=== PATIENT | female | born 2000 | race Caucasian/White ===

== ENCOUNTER 2023-07-24 08:36 | Emergency (ER) | payer OTHER, SELFPAY ==
[2023-07-24 09:11] VITALS: BP 136/87; PULSE 115; RESP 16; TEMP 36.8; O2SAT 100
[2023-07-24 09:38] LABS: Appearance Urine Cloudy (Clear); Bacteria Urine 1+ /hpf; Bilirubin Urine Negative (Negative); Blood Urine 1+ (Negative); Color Urine Yellow (Yellow); Glucose Urine UA Negative (Negative); Ketones Urine 1+ mg/dL (Negative); Leukocyte Esterase Ur 3+ LEU/UL (Negative); Nitrate Urine Negative (Negative); Non Pathogenic Casts 0-2; Protein Urine Trace mg/dL (Negative); Specific Grav Ur 1.024 (1.001-1.035); Squamous Epithelial Cell Urine Few /hpf (Few); Urobilinogen Urine 0.2 mg/dL (<2.0); WBC Urine >100 /hpf (0-3)
--- NOTE | 2023-07-24 09:38 | ED.FEMALEGU ---
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 Reports she started to have some discomfort on Tuesday. This discomfort has worsened and the area is swollen, she is having abnormal drainage. She made appointment with her butt maker, but this is not till tomorrow. She did not think she could wait. Reports discomfort with urination. Would like to be tested for STDs. Denies fevers. Related Data Allergies Allergy/AdvReac Type Severity Reaction Status Date / Time No Known Allergies Allergy Verified 07/24/23 08:37 Review of Systems Review of Systems: CONSTITUTIONAL: Denies fever GENITOURINARY: Reports dysuria SKIN: Reports rash All systems reviewed & are unremarkable except as noted in HPI and below PMFSH Past Medical History Medical History (Updated 07/24/23 @ 12:19 by Gloria Alanis PA-C) No active medical problems Social History Social History (Updated 07/24/23 @ 09:46 by Gloria Alanis PA-C) Smoking status: Never smoker Exam Narrative: GENERAL: Well-appearing, well-nourished, and in no acute distress. HEAD: Normocephalic, atraumatic. EYES: EOMI. EXTREMITIES: Normal range of motion. No edema. SKIN: Warm, dry, no rash. NEURO: No focal deficits. Alert and oriented x3. PSYCH: Normal mood and affect PELVIC: Ulcerations on an erythematous base to the labia. Ulcerations on the cervix with yellow/green cervical discharge Course Course Emergency Course: patient updated on workup and agrees with plan of care Vital Signs Vital signs: Vital Signs Temperature 98.3 F 07/24/23 09:11 Pulse Rate 115 H 07/24/23 09:11 Respiratory Rate 16 07/24/23 09:11 Blood Pressure 136/87 07/24/23 09:11 Pulse Oximetry 100 07/24/23 09:11 Oxygen Delivery Room Air 07/24/23 09:11 Temperature 98.3 F 07/24/23 09:11 Pulse Rate 115 H 07/24/23 09:11 Respiratory Rate 16 07/24/23 09:11 Blood Pressure 136/87 07/24/23 09:11 Pulse Oximetry 100 07/24/23 09:11 Oxygen Delivery Room Air 07/24/23 09:11 MDM - Female Genitourinary MDM Narrative Medical decision making narrative: Patient presents to the ER for vulvovaginal irritation. Exam is consistent with likely herpes infection. Will be started on Valtrex. Urine does appear infected. Will be started on Macrobid as well. chlamydia, gonorrhea, and Trichomonas are negative. Genital culture and HSV cultures are pending. patient updated on workup and agrees with plan of care. She is to follow up with her butt maker. She was given warnings to return to the ER Differential Diagnosis Differential diagnosis: Likely urinary tract infection, bacterial vaginosis, trichomoniasis, cervicitis, vaginitis, cystitis and other (herpes) Lab Data Attestation: I reviewed the patient's lab results. Labs: Lab Results 07/24/23 07/24/23 07/24/23 Range/Units 09:20 10:11 10:12 Urine Color Yellow (Yellow) Urine Appearance Cloudy H (Clear) Urine pH 6.0 (5.0-9.0) Ur Specific [employer] 1.024 (1.001-1.035) Urine Protein Trace (Negative) mg/dL Urine Glucose (UA) Negative (Negative) mg/dL Urine Ketones 1+ H (Negative) mg/dL Ur Blood (Man) 1+ H (Negative) Urine Nitrate Negative (Negative) Urine Bilirubin Negative (Negative) Urine Urobilinogen 0.2 (<2.0) mg/dL Leukocyte Esterase Rfl 3+ H (Negative) JANE/UL Urine RBC 6-10 H (0-2) /hpf Urine WBC >100 H (0-3) /hpf Ur Squamous Epith Cells Few (Few) /hpf Urine Bacteria 1+ H /hpf Urine Casts 0-2 C. trachomatis (PCR) Not detected (NOT DETECTE) Herpes Simplex Culture N. gonorrhoeae (PCR) N
[2023-07-24 09:48] LABS: Add Urine Microscopic? YES
[2023-07-24 10:00] VITALS: BP 122/74; PULSE 72; RESP 16; TEMP 36.6; O2SAT 99
[2023-07-24] MEDS: KETOROLAC 30 MG/ML VIAL (*BKC) IM (10:07)
[2023-07-24 11:00] VITALS: BP 124/68; PULSE 74; RESP 16; TEMP 36.6; O2SAT 98
[2023-07-24 11:25] LABS: Trichomonas Vag PCR NOT DETECTED (NOT DETECTE)
[2023-07-24 11:49] LABS: Chlamydia trachomatis NOT DETECTED (NOT DETECTE); Neisseria gonorrhoeae PCR NOT DETECTED (NOT DETECTE)
[2023-07-24 12:00] VITALS: BP 126/78; PULSE 74; RESP 16; TEMP 36.7; O2SAT 100
== END 2023-07-24 12:37 | disposition home or self-care (01) ==
PROVIDERS: Emergency Provider Physician Assistant; PCP Family Medicine Sports Medicine
DX: N30.00 Acute cystitis without hematuria (principal)
CPT/HCPCS: 81001; 81025; 87070; 87077; 87086; 87088; 87255; 87491; 87591; 87661; 96372; 99284; J1885